=== PATIENT | male | born 1995 | race Native Hawaiian/Other Pacific Islander ===

== ENCOUNTER 2021-01-03 09:12 | Emergency (ER) | payer SELFPAY ==
[2021-01-03 09:18] VITALS: BP 121/69
--- NOTE | 2021-01-03 10:57 | Emergency Department Report ---
ED General Adult HPI - General Chief complaint: Skin Rash Stated complaint: RASH ON ARMS Time Seen by Provider: 01/03/21 10:13 Source: patient Mode of arrival: Ambulatory Limitations: No Limitations - History of Present Illness Initial comments: 25-year-old male patient presents with complaints of itchy rash bilaterally to the forearms x 5 days. 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 He believes he came into contact with poison dayna. Patient states the rash is itchy and now is becoming painful. The rash has not improved with calamine lotion. He denies any past medical history, fever/chills/sweats, or joint pains. -: Sudden - Related Data Previous Rx's Medication Instructions Recorded Last Taken Type Famotidine [Pepcid] 20 mg PO BID 7 Days #14 tablet 01/03/21 Unknown Rx Loratadine 10 mg PO QDAY 7 Days #7 capsule 01/03/21 Unknown Rx Prednisone [predniSONE 10 mg 10 mg PO .TAPER #1 tab.ds.pk 01/03/21 Unknown Rx (6-Day Pack, 21 Tabs)] Triamcinolone Acetonide 80 gm TP TID PRN 7 Days #2 01/03/21 Unknown Rx oint...g. Allergies Allergy/AdvReac Type Severity Reaction Status Date / Time No Known Allergies Allergy Verified 01/03/21 09:17 ED Review of Systems ROS: Stated complaint: RASH ON ARMS Other details as noted in HPI Constitutional: denies: chills, fever, malaise Respiratory: denies: cough, shortness of breath Cardiovascular: denies: chest pain Musculoskeletal: denies: joint swelling, arthralgia Skin: rash Neurological: denies: paresthesias ED Past Medical Hx - Medications Home Medications: Home Medications Medication Instructions Recorded Confirmed Last Taken Type Famotidine [Pepcid] 20 mg PO BID 7 Days #14 tablet 01/03/21 Unknown Rx Loratadine 10 mg PO QDAY 7 Days #7 capsule 01/03/21 Unknown Rx Prednisone [predniSONE 10 mg 10 mg PO .TAPER #1 tab.ds.pk 01/03/21 Unknown Rx (6-Day Pack, 21 Tabs)] Triamcinolone Acetonide 80 gm TP TID PRN 7 Days #2 01/03/21 Unknown Rx oint...g. ED Physical Exam - General Limitations: No Limitations General appearance: alert, in no apparent distress - Head Head exam: Present: atraumatic, normocephalic - Eye Eye exam: Present: normal appearance - Respiratory Respiratory exam: Present: normal lung sounds bilaterally. Absent: respiratory distress - Cardiovascular Cardiovascular Exam: Present: regular rate, normal rhythm - Extremities Exam Extremities exam: Present: full ROM. Absent: joint swelling - Neurological Exam Neurological exam: Present: alert, oriented X3 - Psychiatric Psychiatric exam: Present: normal affect, normal mood - Skin Skin exam: Present: warm, dry, intact, normal color, rash (Papular rash, confluent in the antecubital fossa's bilaterally with some mild serous draining fluid noted; no cellulitic changes noted) ED Course Vital Signs 01/03/21 09:17 Temperature 98.3 F Pulse Rate 90 Respiratory 18 Rate Blood Pressure 121/69 [Left] O2 Sat by Pulse 98 Oximetry ED Medical Decision Making - Medical Decision Making 25-year-old male patient presents with complaints of itchy rash bilaterally to the forearms x 5 days. 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 He believes he came into contact with poison dayna. Patient states the rash is itchy and now is becoming painful. The rash has not improved with calamine lotion. He denies any past medical history, fever/chills/sweats, or joint pains. Will treat for contact dermatitis with antihistamines, steroids, and topical steroid cream. Will cover for secondary infection with Keflex. Recommend patient follows up with primary care in 3 to 5 days. Patient is well-appearing, his vitals are within normal limits, he is stable for discharge home. Discussed in detail signs and symptoms that should prompt immediate return to the ED with patient who verbalizes understanding. Critical care attestation.: If time is entered above; I have spent that time in minutes in the direct care of this critically ill patient, excluding procedure time. ED Disposition Clinical Impression: Contact dermatitis Disposition: 01 HOME / SELF CARE / HOMELESS Is pt being admited?: No Condition: Stable Instructions: Contact Dermatitis, Poison Dayna Dermatitis Prescriptions: Loratadine 10 mg PO QDAY 7 Days #7 capsule Famotidine [Pepcid] 20 mg PO BID 7 Days #14 tablet Prednisone [predniSONE 10 mg (6-Day Pack, 21 Tabs)] 10 mg PO .TAPER #1 tab.ds.pk Triamcinolone Acetonide 80 gm TP TID PRN 7 Days #2 oint...g. PRN Reason: itching Referrals: [facility] [Provider Group] - 3-5 Days Forms: Work/School Release Form(ED)
== END 2021-01-03 11:54 | disposition home or self-care (01) ==
LOC: ED 09:12
DX: L23.9 Allergic contact dermatitis, unspecified cause (principal)
CPT/HCPCS: 99281